=== PATIENT | male | born 1945 | race Caucasian/White ===

== ENCOUNTER 2019-10-22 11:59 | Outpatient (CLI) | payer MEDICARE, OTHER, SELFPAY ==
--- NOTE | 2019-10-22 | XR_ITS ---
WS: [id number] ELBOW RIGHT TECHNIQUE: 3 views of the right elbow CLINICAL INFORMATION: ELBOW INURY RIGHT COMPARISON: None. FINDINGS: No significant joint effusion. Distal humerus is normal in appearance. Normal radial head. Normal ole cranon. No evidence of acute fracture dislocation. Olecranon spurring XR/XR elbow RT min 3V* [id number] IMPRESSION: No acute fractures
== END 2019-10-22 12:00 | disposition home or self-care (01) ==
LOC: RADOUTREAD 15:31
PROVIDERS: Family Provider Family Medicine; PCP Family Medicine; Visit Provider Nurse Practitioner Family
DX: S59.901A Unspecified injury of right elbow, initial encounter (principal); X58.XXXA Exposure to other specified factors, initial encounter; M25.521 Pain in right elbow
CPT/HCPCS: 73080

== ENCOUNTER 2020-05-01 14:09 | Outpatient (CLI) | payer MEDICARE, OTHER, SELFPAY ==
--- NOTE | 2020-05-01 14:15 | USCV_ITS ---
ImerSaul jesus Age: 75 Gender: M : 1945 Exam Date: 05/01/2020 14:17 Ordering Phys: Maged Ballard MD ([email or web address]) Technologist: Fernando Cox Exam Location[place] [facility] [place] Indication: CAROTID ARTERY DISEASE SURVEILLANCE PREVIOUS STROKE Risk Factors: Previous Vascular Surgery: Right Brachial BP: / Left Brachial BP: / Right Left Velocity (cm/s) Spectral Plaque Velocity (cm/s) Spectral Plaque Syst/Diast Broadening Syst/Diast Broadening 60.40/ 11.80 Prox CCA 99.30 / 18.30 75.70/ 19.40 Mid CCA 81.80 / 16.80 63.90/ 8.30 Distal CCA 67.20 / 9.90 52.80/ 16.70 Prox ICA 61.80 / 17.70 65.30/ 17.40 Mid ICA 50.00 / 19.00 64.60/ 18.80 Distal ICA 50.60 / 13.80 88.90 ECA 79.50 0.86 ICA/CCA 0.61 Antegrade Vertebral Antegrade 32.00/ 7.60 cm/s 21.90/ 9.10 cm/s Tri Subclavian Bi 68.00 88.60 CONCLUSIONS Right ICA stenosis <50%. Moderate atheromatous plaque right carotid bulb/ICA. Left ICA stenosis <50%. Moderate atheromatous plaque left carotid bulb/ICA. . Normal antegrade Doppler flow noted in the right vertebral artery. Normal antegrade Doppler flow noted in the left vertebral artery. Hussein Callejas MD (Electronically Signed) Final Date: 01 May 2020 17:01 S
== END 2020-05-01 14:10 | disposition home or self-care (01) ==
LOC: RAD 14:15
PROVIDERS: PCP Family Medicine; Visit Provider Internal Medicine Cardiovascular Disease
DX: I65.23 Occlusion and stenosis of bilateral carotid arteries (principal)
CPT/HCPCS: 93880

== ENCOUNTER 2020-11-12 13:47 | Emergency (ER) | payer OTHER, MEDICARE, SELFPAY ==
[2020-11-12 14:10] VITALS: BP 139/94; PULSE 80; RESP 14; TEMP 36.5; O2SAT 95; BMI 22.1
--- NOTE | 2020-11-12 14:18 | XRR_ITS ---
PROCEDURE INFORMATION: Exam: XR Lumbosacral Spine, 2 or 3 Views Exam date and time: 11/12/2020 2:54 PM Age: 75 years old Clinical indication: Low back pain TECHNIQUE: Imaging protocol: XR of the lumbosacral spine, 2 or 3 views. COMPARISON: CR Hip 2-3v LEFT wwo Pelv* [id number] 08/26/2015 2:32 PM FINDINGS: Bones/joints: Normal. No acute fracture. Normal alignment. Soft tissues: Unremarkable. Vasculature: There is a metallic aortic vascular stent present extending into the proximal iliac arteries. XR/XR lumbar spine 2-3V* [id number] IMPRESSION: 1. No acute lumbar spine bony abnormality. 2. Vascular stent is in the aorta and proximal iliac arteries
--- NOTE | 2020-11-12 14:18 | XRR_ITS ---
PROCEDURE INFORMATION: Exam: XR Right Hip with Pelvis when Performed Exam date and time: 11/12/2020 2:54 PM Age: 75 years old Clinical indication: Hip pain; Right hip TECHNIQUE: Imaging protocol: XR Right hip with pelvis when performed. Views: 1 view. COMPARISON: CR Pelvis AP 1 or 2 views* [id number] 08/26/2015 2:32 PM FINDINGS: Bones/joints: Unremarkable. No acute fracture. Soft tissues: Unremarkable. XR/XR hip RT 2-3V wo/w pel* [id number] IMPRESSION: No acute findings.
--- NOTE | 2020-11-12 16:11 | ED_ITS ---
HPI - Extremity Problem General: Chief complaint: Extremity Problem,Nontraumatic Stated complaint: BACK PAIN, RECENTLY SEEN AT [facility]WALK[facility] Time Seen by Provider: 11/12/20 14:39 Source: patient and family Limitations: other (Patient presents to the emergency department with 3 weeks of nontraumatic right hip pain. Pain starts in the right buttock cancer radiates around to the right lateral hip. No pain with walking or palpation. No pain with movement. Pain just seems to come randomly. Denies having any midline back ) History of Present Illness: Associated symptoms: Deny chest pain or fever(s) Review of Systems General: Reports: 10 or more systems reviewed and unremarkable except in HPI and below Const: Denies: fever(s) Eyes: Denies: change in vision ENMT: Denies: throat pain Card: Denies: chest pain Resp: Denies: dyspnea GI: Denies: abdominal pain : Denies: flank pain Musc: Reports: joint pain; Denies: neck pain, joint swelling or joint redness [facility] ED PFSH: Medical History Atrial fibrillation CAD (coronary artery disease) Carotid arterial disease HTN (hypertension) Hyperlipemia Left middle cerebral artery stroke Mitral regurgitation Pacemaker SSS (sick sinus syndrome) Warfarin anticoagulation Social History Smoking and tobacco status: former smoker Household members: spouse Marital status: service: Yes branch: [employer] Physical Exam Const: COMMON NORMALS: no acute distress, average body habitus, patient oriented x3, no limitations, healthy appearing, alert and well nourished HENMT: COMMON NORMALS: normocephalic, atraumatic, hearing grossly normal bilaterally, external ears normal, EAC's normal, TM's normal bilaterally, Normal external nose present, Normal nasal mucous membranes and turbinates present, moist oral mucous membranes, oropharynx normal, dentition normal and gingiva normal HEAD & SCALP: normocephalic and atraumatic NOSE: Normal external nose present and Normal nasal mucous membranes and turbinates present EXTERNAL EAR: Yes external ears normal EXTERNAL AUDITORY CANAL: EAC's normal TYMPANIC MEMBRANE: TM's normal bilaterally Neck/C-Spine: COMMON NORMALS: no JVD Chest: COMMONS NORMALS: normal inspection of the chest, normal palpation of entire chest wall, normal inspection of the breasts and normal palpation of the breasts Breast/axilla inspection: Yes normal inspection of the breasts BREAST/AXILLA PALPATION: Yes normal palpation of the breasts Resp: COMMON NORMALS: normal respiratory effort, No retractions, No use of accessory muscles, clear to auscultation bilaterally and percussion normal AUSCULTATION: clear to auscultation bilaterally PERCUSSION: percussion normal Cardio: COMMON NORMALS: no JVD, regular rate, regular rhythm, S1 normal heart sound present, S2 normal heart sound present, No gallops present (Cardio), No clicks present (Cardio), No murmurs present (Cardio), No rub (Cardio) and Peripheral pulses 2+ throughout RATE: regular rate RHYTHM: regular rhythm HEART SOUNDS: S1 normal heart sound present and S2 normal heart sound present PERIPHERAL PULSES: Peripheral pulses 2+ throughout GI: COMMON NORMALS: Normal to inspection, nondistended, normoactive bowel sounds present, Soft to palpation, non-tender, No hepatosplenomegaly present, no masses and no bruits PALPATION: Yes Soft to palpation and Yes No hepatosplenomegaly present : COMMON NORMALS: Yes no CVA tenderness BLADDER/KIDNEY EXAM: Yes no CVA tenderness Back/Pelvis: COMMON NORMALS: no CVA tenderness, thoracic and lumbar spine normal to inspection, no thoracic nor lumbar tenderness, thoraco-lumbar ROM normal and straight leg raise negative bilaterally Extremity: COMMON NORMALS: normal to inspection, full ROM, capillary refill normal, no joint enlargement, no clubbing, cyanosis or edema, no calf tenderness and no pedal edema Neuro: COMMON NORMALS: patient oriented x3 SENSORIUM/ORIENTATION: Yes alert Course Vital Signs: Vital signs: Vital Signs Temperature 97.7 F 11/12/20 14:10 Pulse Rate 86 11/12/20 16:07 Respiratory Rate 18 11/12/20 16:07 Blood Pressure 120/91 11/12/20 16:07 Pulse Oximetry 94 11/12/20 16:07 MDM - Extremity (Nontraumatic) MDM Narrative: Medical decision making narrative: Patient presents with nontraumatic right hip pain x3 weeks. He does not have any pain at present. He states that it seemed to be worse at night. Nothing really seems to make it worse. He actually states that he has an MRI scheduled for tomorrow. He is wanting something for pain in case it starts hurting again tonight. He does have chronic neuro deficits from a previous stroke on that side. Physical exam is very benign. Unable to elicit any pain. As patient already has an outpatient MRI scheduled for tomorrow per his report, I see no reason to do any further emergent imaging at this time. Patient given [place] for pain. Discharge Plan Discharge Patient Disposition: Home Clinical Impression: Acute hip pain Qualifiers: Laterality: right Qualified Code(s): M25.551 - Pain in right hip Condition: Good Prescriptions: New hydrocodone-acetaminophen 5-325 mg tablet 1 tab PO Q6H Qty: 20 RF: 0 No Action atorvastatin 20 mg tablet 20 mg PO BEDTIME RF: 0 baclofen 10 mg tablet 10 mg PO BID RF: 0 digoxin 125 mcg (0.125 mg) tablet 125 mcg PO DAILY RF: 0 finasteride 5 mg tablet 5 mg PO DAILY RF: 0 gabapentin 300 mg capsule 300 mg PO BID RF: 0 metoprolol tartrate 50 mg tablet 50 mg PO BID RF: 0 tamsulosin 0.4 mg capsule 0.4 mg PO BEDTIME RF: 0 trazodone 50 mg tablet 50 mg PO BEDTIME RF: 0 warfarin 5 mg tablet See Rx Instructions .ROUTE .COMPLEX RF: 0 warfarin 2.5 mg tablet See Rx Instructions .ROUTE .COMPLEX RF: 0 Singulair 10 mg Tablet 10 mg PO DAILY RF: 0 Tylenol Extra Strength 500 mg Tablet 500 mg PO PRN RF: 0 Discharge Orders: Discharge ED (Routine); Ordered 11/12/20 Ordered By: Dimitri Maddox Referrals: Arlene David MD [Primary Care Provider] - Coding Level of Care Code ED Night Custodian for Goran Howard
[2020-11-12] MEDS: HYDROcodone-acetaminophen 5-325 mg Tablet 1 TAB PO (16:14)
[2020-11-12 16:19] VITALS: PULSE 77; RESP 16; O2SAT 95
== END 2020-11-12 16:19 | disposition home or self-care (01) ==
PROVIDERS: Emergency Provider Emergency Medicine; PCP Family Medicine
DX: M25.551 Pain in right hip (principal); Z79.01 Long term (current) use of anticoagulants; I48.91 Unspecified atrial fibrillation; I25.10 Atherosclerotic heart disease of native coronary artery without angina pectoris; I10 Essential (primary) hypertension; E78.5 Hyperlipidemia, unspecified; Z86.73 Personal history of transient ischemic attack (TIA), and cerebral infarction without residual deficits; Z95.0 Presence of cardiac pacemaker; Z87.891 Personal history of nicotine dependence
CPT/HCPCS: 12345; 72100; 73502; 99281; 99283

== ENCOUNTER → 2022-03-11 12:46 | Outpatient (BNVA) | payer MEDICARE, OTHER, SELFPAY | PROVIDERS: PCP Family Medicine; Visit Provider Internal Medicine | DX: I25.10 Atherosclerotic heart disease of native coronary artery without angina pectoris (principal); I10 Essential (primary) hypertension; E78.5 Hyperlipidemia, unspecified; I34.0 Nonrheumatic mitral (valve) insufficiency; I48.91 Unspecified atrial fibrillation; I49.5 Sick sinus syndrome; Z87.891 Personal history of nicotine dependence | CPT/HCPCS: 99214 ==

== ENCOUNTER → 2022-03-28 13:52 | Outpatient (BNVA) | payer MEDICARE, OTHER, SELFPAY | PROVIDERS: PCP Family Medicine; Visit Provider Internal Medicine | DX: Z45.010 Encounter for checking and testing of cardiac pacemaker pulse generator [battery] (principal) ==

== ENCOUNTER 2022-04-01 21:30 | Emergency (ER) | payer MEDICARE, OTHER, SELFPAY ==
[2022-04-01 21:42] VITALS: BP 156/89; PULSE 102; RESP 18; TEMP 37.6; O2SAT 93; BMI 22.1
--- NOTE | 2022-04-01 22:02 | XRR_ITS ---
PROCEDURE INFORMATION: Exam: XR Chest Exam date and time: 04/01/2022 11:32 PM Age: 76 years old Clinical indication: Other: Dizziness; Prior surgery; Surgery date: 1-6 months; Surgery type: Pacemaker insertion; Additional info: Fever TECHNIQUE: Imaging protocol: XR of the chest. Views: 1 view. COMPARISON: [facility] Chest 2 views 05/01/2018 11:16 AM FINDINGS: Tubes, catheters and devices: Left-sided cardiac pacemaker again noted, not significantly changed. Lungs: No CHF/pulmonary edema. Visible lungs appear essentially clear. Pleural spaces: No visible pneumothorax. No definite pleural fluid. Heart/Mediastinum: Heart size is upper range of normal. Bones/joints: No significant acute finding. XR/XR chest 1V portable [id number] IMPRESSION: 1. No definite pneumonia or CHF. 2. Left-sided cardiac pacemaker, unchanged. 3. Other findings discussed above.
[2022-04-01 23:31] LABS: Add Urine Culture? Yes; Add Urine Microscopic? YES; Bacteria Urine TRACE /hpf; Bilirubin Urine Neg (Negative); Blood Urine 2+ (Negative); Glucose Urine UA Norm (Normal); Ketones Urine Negative (Negative); Leukocyte Esterase Urine Negative (Negative); Nitrate Urine Negative (Negative); Protein Urine Neg (Negative); RBC Urine 15-25 /hpf (0-2); Squamous Epithelial Cell Urine 0-4 /hpf (0-5); Urine Appearance Clear (CLEAR); Urine Color Yellow (Yellow); Urobilinogen Urine 1 mg/dL (Negative); WBC Urine 0-4 /hpf (0-5); pH Urine 6 (5-7)
--- NOTE | 2022-04-01 23:56 | CTR_ITS ---
PROCEDURE INFORMATION: Exam: CT Head Without Contrast Exam date and time: 04/02/2022 12:28 AM Age: 76 years old Clinical indication: Dizziness and walking, difficulty; Patient HX: HX of stroke six yrs ago. RT sided paralysis; Additional info: Confusion TECHNIQUE: Imaging protocol: Computed tomography of the head without contrast. Radiation optimization: All CT scans at this facility use at least one of these dose optimization techniques: automated exposure control; mA and/or kV adjustment per patient size (includes targeted exams where dose is matched to clinical indication); or iterative reconstruction. COMPARISON: CT head wo con* [id number] 04/28/2018 3:34 PM RADIATION DOSE METRICS: Total DLP (mGy-cm): 829.46 FINDINGS: Brain: No acute intracranial hemorrhage or mass effect. There is decreased attenuation in the periventricular white matter, likely from microvascular disease. There is an old lacunar infarct in the left thalamus. Additional old infarcts involve the left posterior temporal/occipital regions, and superior left cerebellum. No definite acute infarct by CT. MRI could be more sensitive/specific for detection, as clinically directed. Cerebral ventricles: Ventricle size is normal for age. Paranasal sinuses: Included paranasal sinuses are essentially clear. Mastoid air cells: No significant acute finding. Parotid and submandibular glands: On the lowest few images, there appears to be a 3 x 2 cm mass involving the region of or just anterior to the right parotid gland, only partially included/evaluated on this exam. This appears new/larger than on the comparison exam. The etiology is not specific, however neoplasm, (either benign or malignant), is likely. I do not think this simply represents an enlarged lymph node. Clinical attention to this area is recommended. MRI would probably be most specific for any further imaging evaluation, as clinically directed. Bones/joints: No definite acute skull fracture. Soft tissues: No significant acute finding. Vasculature: Vascular calcifications in the internal carotid and vertebral basilar systems. CT/CT head wo con* [id number] IMPRESSION: 1. No acute intracranial hemorrhage or mass effect. 2. Changes of microvascular disease, and old infarcts, details above. 3. No definite acute infarct by CT, see above. 4. 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 Please see above discussion. 5. Other findings discussed above.
--- NOTE | 2022-04-01 23:56 | W.ED.GENADLT ---
HPI - General Adult General: Chief complaint: General Medical Stated complaint: Fever/Pacemaker Time Seen by Provider: 04/01/22 23:10 Source: patient Mode of arrival: ambulatory Limitations: no limitations History of Present Illness: 76-year-old male who states he been having intermittent fevers over the last 2 days and not feeling well. He states he had some generalized weakness and a temperature up to 101. States he has had a high blood pressure as well as had a history of high blood pressure. Family states that he has had fevers has had some confusion patient currently is able answer all my questions and he feels improved currently than he did he states earlier today. He has had no cough no pain anywhere he denies any vomiting or diarrhea denies any worsening proving factors. Associated symptoms: Reports confusion; Deny chest pain, dyspnea, nausea, rash or vomiting Review of Systems Const: Reports: fever(s) Eyes: Denies: blurry vision or eye discomfort ENMT: Denies: throat pain or dental pain Card: Denies: chest pain Resp: Denies: dyspnea GI: Denies: abdominal pain, nausea, vomiting or diarrhea : Denies: dysuria Musc: Denies: neck pain or back pain Skin/Breast: Denies: rash Neuro: Reports: numbness in extremities and confusion Psych: Denies: depression Rip/Lymph: Denies: easy bruising All/Imm: Denies: urticaria PFSH ED PFSH: Medical History Atrial fibrillation CAD (coronary artery disease) Carotid arterial disease HTN (hypertension) Hyperlipemia Left middle cerebral artery stroke Mitral regurgitation Pacemaker SSS (sick sinus syndrome) Warfarin anticoagulation Social History Smoking and tobacco status: former smoker Alcohol intake: never Household members: spouse Marital status: service: Yes branch: [employer] Physical Exam Const: COMMON NORMALS: patient oriented x3 HENMT: COMMON NORMALS: normocephalic and atraumatic HEAD & SCALP: normocephalic and atraumatic Eye: COMMON NORMALS: Equal, round and reactive pupils present and EOMs intact bilaterally PUPIL: Yes Equal, round and reactive pupils present Neck/C-Spine: COMMON NORMALS: full ROM and supple Chest: COMMONS NORMALS: normal inspection of the chest and normal palpation of entire chest wall Resp: COMMON NORMALS: normal respiratory effort, No retractions, No use of accessory muscles and clear to auscultation bilaterally AUSCULTATION: clear to auscultation bilaterally Cardio: COMMON NORMALS: regular rate, regular rhythm and No murmurs present (Cardio) RATE: regular rate RHYTHM: regular rhythm GI: COMMON NORMALS: Normal to inspection, nondistended, normoactive bowel sounds present, Soft to palpation, non-tender and no masses PALPATION: Yes Soft to palpation Extremity: COMMON NORMALS: normal to inspection and full ROM Neuro: COMMON NORMALS: patient oriented x3, moves all extremities and no focal motor deficits Psych: COMMON NORMALS: mental status grossly normal, Normal thought process present and cooperative THOUGHT PROCESS: Normal thought process present Skin: COMMON NORMALS: no rashes or lesions noted and no wounds GENERAL SKIN EXAM: no rashes or lesions noted Course Vital Signs: Vital signs: Vital Signs Temperature 99.7 F H 04/01/22 21:42 Pulse Rate 102 H 04/01/22 21:42 Respiratory Rate 18 04/01/22 21:42 Blood Pressure 156/89 04/01/22 21:42 Pulse Oximetry 93 04/01/22 21:42 [facility] - General Adult Medical Decision Making Patient presents here with a fever. He had supposedly had some confusion at home but here he has been alert and orient x4 able answer my questions appropriately he has no complaints states he feels much improved his fever has improved here. Patient's blood count here is normal x-ray urinalysis are normal head CT was normal as well he has no neck stiffness no signs of meningitis his COVID was negative we will place him on Keflex follow blood cultures and have him follow-up with his PCP is return if he has any worsening symptoms family and him agree and understand plan. Lab Data : 04/01/22 23:56 04/01/22 23:56 Radiology Impressions Chest X-Ray 04/01/22 22:02 IMPRESSION: 1. No definite pneumonia or CHF. 2. Left-sided cardiac pacemaker, unchanged. 3. Other findings discussed above. Head CT 04/01/22 23:56 IMPRESSION: 1. No acute intracranial hemorrhage or mass effect. 2. Changes of microvascular disease, and old infarcts, details above. 3. No definite acute infarct by CT, see above. 4. 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 Please see above discussion. 5. Other findings discussed above. Laboratory Results WBC 4.3 10^3/uL (4.0-10.0) 04/01/22 23:56 RBC 4.70 10^6/uL (4.1-5.3) 04/01/22 23:56 Hgb 15.5 g/dL (11.7-16.6) 04/01/22 23:56 Hct 44.4 % (42.0-52.0) 04/01/22 23:56 MCV 94.5 fl (80-94) H 04/01/22 23:56 MCH 33.0 pg (28.0-34.0) 04/01/22 23:56 MCHC 34.9 g/dL (30.0-36.0) 04/01/22 23:56 RDW 12.4 % (12.1-15.1) 04/01/22 23:56 Plt Count 80 10^3/cmm (130-400) L 04/01/22 23:56 MPV 11.4 fL (7.4-10.4) H 04/01/22 23:56 Neut % (Auto) 67.3 % 04/01/22 23:56 Lymph % (Auto) 17.0 % 04/01/22 23:56 [place] % (Auto) 14.5 % 04/01/22 23:56 Eos % (Auto) 0.2 % 04/01/22 23:56 Baso % (Auto) 0.5 % 04/01/22 23:56 Neut # (Auto) 2.89 10^3/uL (1.8-7.7) 04/01/22 23:56 Lymph # (Auto) 0.7 10^3/uL (0.8-4.8) L 04/01/22 23:56 [place] # (Auto) 0.6 10^3/uL (0.2-0.9) 04/01/22 23:56 Eos # (Auto) 0.0 10^3/uL (0.0-0.8) 04/01/22 23:56 Baso # (Auto) 0.0 10^3/uL (0.0-0.1) 04/01/22 23:56 Nucleated RBC % (auto) 0 % 04/01/22 23:56 Nucleated RBCs # 0.0 /100WBC 04/01/22 23:56 PT 20.10 SECONDS (12.1-14.9) H 04/02/22 00:06 INR 1.68 (0.8-1.2) H 04/02/22 00:06 Sodium 135 mmol/L (136-145) L 04/01/22 23:56 Potassium 3.8 mmol/L (3.5-5.1) 04/01/22 23:56 Chloride 99 mmol/L (98-107) 04/01/22 23:56 Carbon Dioxide 26 mmol/L (22-29) 04/01/22 23:56 Anion Gap 13.8 (5-19) 04/01/22 23:56 BUN 14 mg/dL (8-23) 04/01/22 23:56 Creatinine 0.9 mg/dL (0.7-1.2) 04/01/22 23:56 GFR Calculation Not Reportable 04/01/22 23:56 Glucose 96 mg/dL (65-115) 04/01/22 23:56 Calculated Osmolality 280 mOsm/kg (285-295) L 04/01/22 23:56 Calcium 8.6 mg/dL (8.5-10.5) 04/01/22 23:56 Total Bilirubin 1.2 mg/dL (0.15-1.2) 04/01/22 23:56 AST 53 U/L (0-40) H 04/01/22 23:56 ALT 40 U/L (0-41) 04/01/22 23:56 Alkaline Phosphatase 88 IU/L (40-130) 04/01/22 23:56 Total Protein 7.3 g/dL (6.6-8.7) 04/01/22 23:56 Albumin 3.7 g/dL (3.5-5.2) 04/01/22 23:56 Globulin 3.6 g/dL (1.3-4.6) 04/01/22 23:56 Urine Color Yellow (Yellow) 04/01/22 21:45 Urine Appearance Clear (CLEAR) 04/01/22 21:45 Urine pH 6 (5-7) 04/01/22 21:45 Ur Specific [place] 1.020 (1.005-1.030) 04/01/22 21:45 Urine Protein Neg (Negative) 04/01/22 21:45 Urine Glucose (UA) Norm (Normal) 04/01/22 21:45 Urine Ketones Negative (Negative) 04/01/22 21:45 Urine Blood 2+ (Negative) H 04/01/22 21:45 Urine Nitrate Negative (Negative) 04/01/22 21:45 Urine Bilirubin Neg (Negative) 04/01/22 21:45 Urine Urobilinogen 1 mg/dL (Negative) H 04/01/22 21:45 Ur Leukocyte Esterase Negative (Negative) 04/01/22 21:45 Urine RBC 15-25 /hpf (0-2) H 04/01/22 21:45 Urine WBC 0-4 /hpf (0-5) H 04/01/22 21:45 Ur Squamous Epith Cells 0-4 /hpf (0-5) H 04/01/22 21:45 Amorphous Sediment Not Reportable 04/01/22 21:45 Urine Bacteria Trace /hpf (NONE) 04/01/22 21:45 SARS-CoV-2 Ag (Rapid) Negative (Negative) 04/02/22 00:05 Discharge Plan Discharge Patient Disposition: Home Clinical Impression: Fever Qualifiers: Fever type: unspecified Qualified Code(s): R50.9 - Fever, unspecified Condition: Stable Prescriptions: New cephalexin 500 mg capsule 500 mg PO TID 7 Days Qty: 21 0RF No Action atorvastatin 20 mg tablet 20 mg PO BEDTIME 0RF baclofen 10 mg tablet 10 mg PO BID 0RF digoxin 125 mcg (0.125 mg) tablet 125 mcg PO DAILY 0RF finasteride 5 mg tablet 5 mg PO DAILY 0RF tamsulosin 0.4 mg capsule 0.4 mg PO BEDTIME 0RF trazodone 50 mg tablet 50 mg PO BEDTIME 0RF warfarin 5 mg tablet See Rx Instructions .ROUTE .COMPLEX 0RF Rx Instructions: 5 mg orally at bedtime on mon,tu,wed,,fri,sat gabapentin 300 mg capsule 300 mg PO DAILY 0RF metoprolol tartrate 100 mg tablet 100 mg PO BID Qty: 180 3RF multivitamin [Daily Multi-Vitamin] Tablet 1 tab PO DAILY 0RF warfarin 2.5 mg tablet See Rx Instructions .ROUTE .COMPLEX 0RF Rx Instructions: 2.5mg po at bedtime once a week on friday Singulair 10 mg Tablet 10 mg PO DAILY 0RF Tylenol Extra Strength 500 mg Tablet 500 mg PO PRN 0RF Discharge Orders: Discharge ED (Routine); Ordered 04/02/22 Ordered By: Brigida Chauhan Referrals: Arlene David MD [Primary Care Provider] - 1-3 days Discharge Diet: Advance as tolerated Discharge Activity: Resume usual activity Patient Instructions: Fever in Adults (ED) Coding Level of Care Code ED Programming Manager for Chg Fwd Exam Comprehensive
[2022-04-02] MEDS: acetaminophen 325 mg Tablet 650 MG PO (00:11)
[2022-04-02] MEDS: hyDRALAzine 20 mg/mL INJ 1 mL 10 MG IVP (00:11)
[2022-04-02 00:14] LABS: Basophils % 0.5 %; Eosinophils % 0.2 %; Hematocrit 44.4 % (42.0-52.0); Hemoglobin 15.5 g/dL (11.7-16.6); Lymphocytes # 0.7 10^3/uL (0.8-4.8); Mean Corpuscular HGB Conc 34.9 g/dL (30.0-36.0); Mean Corpuscular Volume 94.5 fl (80-94); Mean Platelet Volume 11.4 fL (7.4-10.4); Monocytes # 0.6 10^3/uL (0.2-0.9); Monocytes % 14.5 %; Neutrophils # 2.89 10^3/uL (1.8-7.7); Neutrophils % 67.3 %; Nucleated Red Blood Cells % 0 %; Platelet Count 80 10^3/cmm (130-400); Red Cell Distribution Width 12.4 % (12.1-15.1); White Blood Count 4.3 10^3/uL (4.0-10.0)
[2022-04-02 00:21] LABS: Alanine Aminotransferase 40 U/L (0-41); Albumin Level 3.7 g/dL (3.5-5.2); Alkaline Phosphatase 88 IU/L (40-130); Anion Gap 13.8 (5-19); Aspartate Amino Transferase 53 U/L (0-40); Blood Urea Nitrogen 14 mg/dL (8-23); Calcium 8.6 mg/dL (8.5-10.5); Carbon Dioxide 26 mmol/L (22-29); Chloride 99 mmol/L (98-107); Creatinine Clr Calc Pharmacy 70.9251; Globulin 3.6 g/dL (1.3-4.6); Glucose 96 mg/dL (65-115); Osmolality Calculated 280 mOsm/kg (285-295); Potassium 3.8 mmol/L (3.5-5.1); Sodium 135 mmol/L (136-145); Total Bilirubin 1.2 mg/dL (0.15-1.2); Total Protein 7.3 g/dL (6.6-8.7)
[2022-04-02 00:32] LABS: INR 1.68 (0.8-1.2)
[2022-04-02 00:54] LABS: SARS Covid-2 Antigen Negative (Negative)
[2022-04-02] MEDS: cephALEXin 500 mg Capsule PO (01:48)
[2022-04-03 11:52] LABS: Lyme AB Screen <0.90 index
[2022-04-06 16:18] LABS: RMSF IGG DETECTED; RMSF IGM NOT DETECTED
[2022-04-06 22:09] LABS: E. Chaffeensis AB IGG <1:64; E. Chaffeensis AB IGM <1:20
== END 2022-04-02 01:50 | disposition home or self-care (01) ==
PROVIDERS: Emergency Provider Emergency Medicine; PCP Family Medicine
DX: R50.9 Fever, unspecified (principal); I25.10 Atherosclerotic heart disease of native coronary artery without angina pectoris; I48.91 Unspecified atrial fibrillation; I10 Essential (primary) hypertension; E78.5 Hyperlipidemia, unspecified; Z79.01 Long term (current) use of anticoagulants; Z95.0 Presence of cardiac pacemaker
CPT/HCPCS: 70450; 71045; 80053; 81001; 85025; 85610; 86618; 86666; 86757; 87040; 87086; 87426; 96374; 99284; J0360

== ENCOUNTER 2022-05-21 15:29 | Outpatient (CLI) | payer MEDICARE, OTHER, SELFPAY ==
--- NOTE | 2022-05-21 15:36 | CT_ITS ---
WS: [id number] CT NECK TECHNIQUE: Contrast-enhanced CT of the neck with coronal and sagittal reformatted images. CLINICAL INFORMATION: BENIGN NEOPLASM OF PAROTID GLAND, LOCALIZED SWELLING, MASS COMPARISON: CT 10,018 DLP: 244.[address] scans at [facility] use at least one of these dose optimization techniques: automated e xposure control; mA and/or kV adjustment per patient size (includes targeted exams where dose is matc hed to clinical indication); or iterative reconstruction. FINDINGS: Images of the tongue base are degraded due to dental artifact. Normal submandibular glands. Enhancing RIGHT parotid mass in the anterior superficial parotid gland appears progressed compared to previous . This has a more heterogeneous appearance today measuring approximately 3.1 x 2.1 x 3.2 cm AP by tra nsverse by craniocaudal. This appears to infiltrate into the adjacent masseter with loss of the nani l flat plate and muscle thickening. Recommend ENT consultation for consideration of resection. No other remarkable changes compared to previous. Partially visualized infarct in the inferior LEFT t emporal lobe and LEFT cerebellum with encephalomalacia. Mastoid air cells well aerated. Partially vis ualized paranasal sinuses are well aerated. No evidence of supraglottic or glottic mass. Normal mondragon cula and piriform sinuses. Subglottic airway is patent. Advanced emphysematous changes in the lung apices. Moderate carotid bulb calcification. Mild spondyli tic changes cervical spine. CT/CT neck w con* [id number] IMPRESSION: 1. Progressed enhancing RIGHT parotid lesion deep to the palpable marker. Toda y this has a more irregular heterogeneous appearance and measures approximately 3.1 x 2.1 x 3.2 cm with infiltration into the adjacent masseter anteriorly wit h loss of the normal fat plane. Recommend ENT consultation for resection. Findi ngs compatible with neoplasm. Staging could be performed with PET/CT. 2. No evidence of supraglottic or glottic mass. 3. No other significant changes compared to previous.
[2022-05-21] MEDS: iohexol 350 mg/mL 100 mL Btl IV (15:53)
== END 2022-05-21 15:30 | disposition home or self-care (01) ==
PROVIDERS: PCP Family Medicine; Visit Provider Specialist
DX: D11.0 Benign neoplasm of parotid gland (principal); R22.1 Localized swelling, mass and lump, neck
CPT/HCPCS: 70491

== ENCOUNTER → 2022-07-24 11:04 | Outpatient (BNVA) | payer MEDICARE, OTHER, SELFPAY | PROVIDERS: PCP Family Medicine; Visit Provider Internal Medicine | DX: Z45.010 Encounter for checking and testing of cardiac pacemaker pulse generator [battery] (principal) | CPT/HCPCS: 93280 ==

== ENCOUNTER → 2022-09-18 13:57 | Outpatient (BNVA) | payer MEDICARE, OTHER, SELFPAY | PROVIDERS: PCP Family Medicine; Visit Provider Internal Medicine | DX: I10 Essential (primary) hypertension (principal); E78.5 Hyperlipidemia, unspecified; I34.0 Nonrheumatic mitral (valve) insufficiency; I48.91 Unspecified atrial fibrillation; Z79.01 Long term (current) use of anticoagulants; I49.5 Sick sinus syndrome; I25.10 Atherosclerotic heart disease of native coronary artery without angina pectoris; Z87.891 Personal history of nicotine dependence | CPT/HCPCS: 99213 ==

== ENCOUNTER 2022-11-12 09:58 | Oncology outpatient (recurring) (ONCR) | payer MEDICARE, OTHER, SELFPAY ==
--- NOTE | 2022-11-12 10:31 | N.ONRAD NP_ITS ---
Radiation Oncology Consultation Patient Name: Saul Willams Date of : 1945 Date of Service: 11/12/2022 Attending Physician: Dilip Desouza M.D. Saul Willams was seen in consultation this afternoon for evaluation regarding adjuvant head and neck radiotherapy in the management of a recently diagnosed parotid cancer. He was assessed by Guy Harper M.D. for a right parotid mass. A CT of the neck ordered on May 21, 2022 described a 3.1 cm x 2.1 cm x 3.2 cm enhancing mass M.D. in the right superficial parotid gland. He was referred to [facility] in [place], [place]. A fine-needle aspiration obtained on July 22, 2022 reported rare atypical cells. A repeat FNA completed on August 26, 2022 diagnosed a salivary gland carcinoma favoring mucoepidermoid carcinoma. A PET scan (requested from the outside hospital and independently reviewed in synapse) obtained on September 26, 2022 identified an infiltrative mass within the right parotid gland (SUV 20.3). There was no evidence for local or distant metastatic disease. A right total parotidectomy with facial nerve preservation and selective neck dissection with a right sternocleidomastoid rotational flap was performed by Celestino Bajwa M.D. on October 01, 2022. 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 Malignancy was present within 1 mm of the inked margin. A total of 7 benign lymph nodes were harvested from cervical lymph node levels I, II A, and III. The patient was evaluated for consideration for post-operative radiotherapy. I discussed with Mr. Willams [employer] [place] [employer]aging for salivary gland cancer and specifically the patient's pathological stage II (T2N0) corresponding to his disease. I reviewed the National Comprehensive Cancer Network Guidelines recommending adjuvant radiotherapy following complete resection for adenoid cystic carcinoma or intermediate/high-grade tumors. I would endorse a 6-week course of radiation therapy. Prior to beginning treatment, a planning CT scan with contrast will be acquired to delineate the clinical target volumes. I reviewed the potential toxicities of head and neck radiotherapy. The patient has verbalized understanding and would like to proceed as advocated. Signed by: Dr. Dilip Desouza 11/12/2022 10:29:32 AM
[2022-11-12 11:22] LABS: Basophils % 0.4 %; Eosinophils # 0.2 10^3/uL (0.0-0.8); Eosinophils % 2.4 %; Hematocrit 47.7 % (42.0-52.0); Hemoglobin 15.8 g/dL (11.7-16.6); Lymphocytes # 2.9 10^3/uL (0.8-4.8); Lymphocytes % 34.8 %; Mean Corpuscular HGB Conc 33.1 g/dL (30.0-36.0); Mean Corpuscular Hemoglobin 32.3 pg (28.0-34.0); Mean Corpuscular Volume 97.5 fl (80-94); Mean Platelet Volume 10.9 fL (7.4-10.4); Monocytes # 0.9 10^3/uL (0.2-0.9); Monocytes % 10.8 %; Neutrophils # 4.31 10^3/uL (1.8-7.7); Neutrophils % 51.4 %; Nucleated Red Blood Cells % 0 %; Platelet Count 141 10^3/cmm (130-400); Red Blood Count 4.89 10^6/uL (4.1-5.3); Red Cell Distribution Width 12.6 % (12.1-15.1); White Blood Count 8.4 10^3/uL (4.0-10.0)
[2022-11-12 11:47] LABS: Alanine Aminotransferase 26 U/L (0-41); Alkaline Phosphatase 89 U/L (40-130); Anion Gap 10.5 (5-19); Aspartate Amino Transferase 29 U/L (0-40); Blood Urea Nitrogen 13 mg/dL (8-23); Calcium 9.9 mg/dL (8.5-10.5); Carbon Dioxide 32 mmol/L (22-29); Chloride 104 mmol/L (98-107); Globulin 3.3 g/dL (1.3-4.6); Glucose 86 mg/dL (65-115); Osmolality Calculated 293 mOsm/kg (285-295); Potassium 4.5 mmol/L (3.5-5.1); Sodium 142 mmol/L (136-145); Total Bilirubin 1.2 mg/dL (0.15-1.2); Total Protein 7.3 g/dL (6.6-8.7)
== END 2022-11-19 23:59 | disposition home or self-care (01) ==
PROVIDERS: PCP Family Medicine; Visit Provider Radiology Radiation Oncology
DX: C07 Malignant neoplasm of parotid gland (principal); Z90.09 Acquired absence of other part of head and neck; Z87.891 Personal history of nicotine dependence
CPT/HCPCS: 36415; 80053; 85025; 99205

== ENCOUNTER → 2022-11-25 08:35 | Outpatient (BNVA) | payer MEDICARE, OTHER, SELFPAY | PROVIDERS: PCP Family Medicine; Visit Provider Internal Medicine | DX: Z45.010 Encounter for checking and testing of cardiac pacemaker pulse generator [battery] (principal) | CPT/HCPCS: 93288 ==

== ENCOUNTER 2022-12-17 09:10 | Oncology outpatient (recurring) (ONCR) | payer MEDICARE, OTHER, SELFPAY ==
--- NOTE | 2022-11-20 | CT_ITS ---
Radiation Therapy Planning CT images; total exam DLP: 908.51 mGy-cm MTDD
[2022-11-20] MEDS: iohexol 350 mg/mL 100 mL Btl IV (12:52)
--- NOTE | 2022-11-25 10:24 | ONCRAD TMN_ITS ---
Radiation Oncology Treatment Management Note Patient Name: Saul Willams Date of : 1945 Date of Service: 11/25/2022 Attending Physician: Dilip Desouza M.D. Saul Willams is a 77 year old white male diagnosed with a pathological stage II (T2N0) parotid cancer. He was evaluated by Guy Harper M.D. for a right parotid mass. A CT of the neck ordered on May 21, 2022 described a 3.1 cm x 2.1 cm x 3.2 cm enhancing mass M.D. in the right superficial parotid gland. He was referred to [facility] in [place], [place]. A fine-needle aspiration obtained on July 22, 2022 reported rare atypical cells. A repeat FNA completed on August 26, 2022 diagnosed a salivary gland carcinoma favoring mucoepidermoid carcinoma. A PET scan obtained on September 26, 2022 identified an infiltrative mass within the right parotid gland (SUV 20.3). There was no evidence for local or distant metastatic disease. A right total parotidectomy with facial nerve preservation and selective neck dissection with a right sternocleidomastoid rotational flap was performed by Celestino Bajwa M.D. on October 01, 2022. 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 Malignancy was present within 1 mm of the inked margin. A total of 7 benign lymph nodes were harvested from cervical lymph node levels I, II A, and III. The patient has received 2 Gy of a prescribed 60 Shaw with an intensity modulated radiotherapy plan utilizing a step and shoot treatment technique. Upon review of systems, he denied any complaints related to radiotherapy. On physical examination, the patient weighed 147 lbs. His temperature was 97.3 ???F and the blood pressure was 118/70 mmHg. His pulse was 50 bpm and the respiratory rate was 16. There was no erythema within the treatment alcaraz. Continue post-operative head and neck radiotherapy as prescribed. Signed by: Dr. Dilip Desouza 11/25/2022 10:23:44 AM
--- NOTE | 2022-12-02 09:43 | ONCRAD TMN_ITS ---
Radiation Oncology Treatment Management Note Patient Name: Saul Willams Date of : 1945 Date of Service: 12/02/2022 Attending Physician: Dilip Desouza M.D. Saul Willams is a 77 year old white male diagnosed with a pathological stage II (T2N0) parotid cancer. He was evaluated by Guy Harper M.D. for a right parotid mass. A CT of the neck ordered on May 21, 2022 described a 3.1 cm x 2.1 cm x 3.2 cm enhancing mass M.D. in the right superficial parotid gland. He was referred to [facility] in [place], [place]. A fine-needle aspiration obtained on July 22, 2022 reported rare atypical cells. A repeat FNA completed on August 26, 2022 diagnosed a salivary gland carcinoma favoring mucoepidermoid carcinoma. A PET scan obtained on September 26, 2022 identified an infiltrative mass within the right parotid gland (SUV 20.3). There was no evidence for local or distant metastatic disease. A right total parotidectomy with facial nerve preservation and selective neck dissection with a right sternocleidomastoid rotational flap was performed by Celestino Bajwa M.D. on October 01, 2022. 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 Malignancy was present within 1 mm of the inked margin. A total of 7 benign lymph nodes were harvested from cervical lymph node levels I, II A, and III. The patient has received 12 Gy of a prescribed 60 Shaw with an intensity modulated radiotherapy plan utilizing a step and shoot treatment technique. Upon review of systems, he denied any complaints. On physical examination, the patient weighed 148 lbs. His temperature was 97.3 ???F and the blood pressure was 123/70 mmHg. His pulse was 83 bpm and the respiratory rate was 18. There was no erythema within the treatment alcaraz. Continue post-operative head and neck radiotherapy as planned. Signed by: Dr. Dilip Desouza 12/02/2022 9:42:48 AM
--- NOTE | 2022-12-09 11:07 | ONCRAD TMN_ITS ---
Radiation Oncology Treatment Management Note Patient Name: Saul Willams Date of : 1945 Date of Service: 12/09/2022 Attending Physician: Dilip Desouza M.D. Saul Willams is a 77 year old white male diagnosed with a pathological stage II (T2N0) parotid cancer. He was evaluated by Guy Harper M.D. for a right parotid mass. A CT of the neck ordered on May 21, 2022 described a 3.1 cm x 2.1 cm x 3.2 cm enhancing mass M.D. in the right superficial parotid gland. He was referred to [facility] in [place], [place]. A fine-needle aspiration obtained on July 22, 2022 reported rare atypical cells. A repeat FNA completed on August 26, 2022 diagnosed a salivary gland carcinoma favoring mucoepidermoid carcinoma. A PET scan obtained on September 26, 2022 identified an infiltrative mass within the right parotid gland (SUV 20.3). There was no evidence for local or distant metastatic disease. A right total parotidectomy with facial nerve preservation and selective neck dissection with a right sternocleidomastoid rotational flap was performed by Celestino Bajwa M.D. on October 01, 2022. 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 Malignancy was present within 1 mm of the inked margin. A total of 7 benign lymph nodes were harvested from cervical lymph node levels I, II A, and III. The patient has received 22 Gy of a prescribed 60 Shaw with an intensity modulated radiotherapy plan utilizing a step and shoot treatment technique. Upon review of systems, he did not report any complaints. On physical examination, the patient weighed 149 lbs. His temperature was 96.8 ???F and the blood pressure was 112/62 mmHg. His pulse was 55 bpm and the respiratory rate was 18. There was no erythema within the treatment alcaraz. Continue post-operative head and neck radiotherapy as prescribed. Signed by: Dilip Desouza 12/09/2022 11:07:23 AM
--- NOTE | 2022-12-16 10:11 | ONCRAD TMN_ITS ---
Radiation Oncology Treatment Management Note Patient Name: Saul Willams Date of : 1945 Date of Service: 12/16/2022 Attending Physician: Dilip Desouza M.D. Saul Willams is a 77 year old white male diagnosed with a pathological stage II (T2N0) parotid cancer. He was evaluated by Guy Harper M.D. for a right parotid mass. A CT of the neck ordered on May 21, 2022 described a 3.1 cm x 2.1 cm x 3.2 cm enhancing mass M.D. in the right superficial parotid gland. He was referred to [facility] in [place], [place]. A fine-needle aspiration obtained on July 22, 2022 reported rare atypical cells. A repeat FNA completed on August 26, 2022 diagnosed a salivary gland carcinoma favoring mucoepidermoid carcinoma. A PET scan obtained on September 26, 2022 identified an infiltrative mass within the right parotid gland (SUV 20.3). There was no evidence for local or distant metastatic disease. A right total parotidectomy with facial nerve preservation and selective neck dissection with a right sternocleidomastoid rotational flap was performed by Celestino Bajwa M.D. on October 01, 2022. 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 Malignancy was present within 1 mm of the inked margin. A total of 7 benign lymph nodes were harvested from cervical lymph node levels I, II A, and III. The patient has received 32 Gy of a prescribed 60 Shaw with an intensity modulated radiotherapy plan utilizing a step and shoot treatment technique. Upon review of systems, he described a mild sore throat. On physical examination, the patient weighed 149 lbs. His temperature was 96.7 ???F and the blood pressure was 109/53 mmHg. His pulse was 50 bpm and the respiratory rate was 18. There was a grade I erythema within the treatment alcaraz. Continue post-operative head and neck radiotherapy as planned. Signed by: Dilip Desouza 12/16/2022 10:10:04 AM
== END 2022-12-17 23:59 | disposition home or self-care (01) ==
PROVIDERS: PCP Family Medicine; Visit Provider Radiology Radiation Oncology
DX: C07 Malignant neoplasm of parotid gland (principal)
CPT/HCPCS: 77300; 77301; 77334; 77336; 77338; 77386; 99024; 99214; Q9967

== ENCOUNTER 2023-01-16 09:10 | Oncology outpatient (recurring) (ONCR) | payer MEDICARE, OTHER, SELFPAY ==
--- NOTE | 2022-12-23 09:54 | ONCRAD TMN_ITS ---
Radiation Oncology Treatment Management Note Patient Name: Saul Willams Date of : 1945 Date of Service: 12/23/2022 Attending Physician: Dilip Desouza M.D. Saul Willams is a 77 year old white male diagnosed with a pathological stage II (T2N0) parotid cancer. He was evaluated by Guy Harper M.D. for a right parotid mass. A CT of the neck ordered on May 21, 2022 described a 3.1 cm x 2.1 cm x 3.2 cm enhancing mass M.D. in the right superficial parotid gland. He was referred to [facility] in [place], [place]. A fine-needle aspiration obtained on July 22, 2022 reported rare atypical cells. A repeat FNA completed on August 26, 2022 diagnosed a salivary gland carcinoma favoring mucoepidermoid carcinoma. A PET scan obtained on September 26, 2022 identified an infiltrative mass within the right parotid gland (SUV 20.3). There was no evidence for local or distant metastatic disease. A right total parotidectomy with facial nerve preservation and selective neck dissection with a right sternocleidomastoid rotational flap was performed by Celestino Bajwa M.D. on October 01, 2022. 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 Malignancy was present within 1 mm of the inked margin. A total of 7 benign lymph nodes were harvested from cervical lymph node levels I, II A, and III. The patient has received 42 Gy of a prescribed 60 Shaw with an intensity modulated radiotherapy plan utilizing a step and shoot treatment technique. Upon review of systems, he described a worsening skin rash within the right neck. On physical examination, the patient weighed 147 lbs. His temperature was 97.3 ???F and the blood pressure was 136/73 mmHg. His pulse was 73 bpm and the respiratory rate was 18. There was a grade II erythema within the treatment alcaraz. Post-pone head and neck radiotherapy in consideration of dermatitis. Signed by: Dilip Desouza 12/23/2022 9:53:11 AM
--- NOTE | 2023-01-06 10:57 | ONCRAD TMN_ITS ---
Radiation Oncology Treatment Management Note Patient Name: Saul Willams Date of : 1945 Date of Service: 01/06/2023 Attending Physician: Dilip Desouza M.D. Saul Willams is a 77 year old white male diagnosed with a pathological stage II (T2N0) parotid cancer. He was evaluated by Guy Harper M.D. for a right parotid mass. A CT of the neck ordered on May 21, 2022 described a 3.1 cm x 2.1 cm x 3.2 cm enhancing mass M.D. in the right superficial parotid gland. He was referred to [facility] in [place], [place]. A fine-needle aspiration obtained on July 22, 2022 reported rare atypical cells. A repeat FNA completed on August 26, 2022 diagnosed a salivary gland carcinoma favoring mucoepidermoid carcinoma. A PET scan obtained on September 26, 2022 identified an infiltrative mass within the right parotid gland (SUV 20.3). There was no evidence for local or distant metastatic disease. A right total parotidectomy with facial nerve preservation and selective neck dissection with a right sternocleidomastoid rotational flap was performed by Celestino Bajwa M.D. on October 01, 2022. 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 Malignancy was present within 1 mm of the inked margin. A total of 7 benign lymph nodes were harvested from cervical lymph node levels I, II A, and III. The patient has received 44 Gy of a prescribed 60 Shaw with an intensity modulated radiotherapy plan utilizing a step and shoot treatment technique. Upon review of systems, he denied any new complaints. On physical examination, the patient weighed 148 lbs. His temperature was 97.1 ???F and the blood pressure was 139/88 mmHg. His pulse was 73 bpm and the respiratory rate was 16. There was a grade I erythema within the treatment alcaraz. Resume head and neck radiotherapy. Signed by: Dilip Desouza 01/06/2023 10:55:36 AM
--- NOTE | 2023-01-13 09:55 | ONCRAD TMN_ITS ---
Radiation Oncology Treatment Management Note Patient Name: Saul Willams Date of : 1945 Date of Service: 01/13/2023 Attending Physician: Dilip Desouza M.D. Saul Willams is a 77 year old white male diagnosed with a pathological stage II (T2N0) parotid cancer. He was evaluated by Guy Harper M.D. for a right parotid mass. A CT of the neck ordered on May 21, 2022 described a 3.1 cm x 2.1 cm x 3.2 cm enhancing mass M.D. in the right superficial parotid gland. He was referred to [facility] in [place], [place]. A fine-needle aspiration obtained on July 22, 2022 reported rare atypical cells. A repeat FNA completed on August 26, 2022 diagnosed a salivary gland carcinoma favoring mucoepidermoid carcinoma. A PET scan obtained on September 26, 2022 identified an infiltrative mass within the right parotid gland (SUV 20.3). There was no evidence for local or distant metastatic disease. A right total parotidectomy with facial nerve preservation and selective neck dissection with a right sternocleidomastoid rotational flap was performed by Celestino Bajwa M.D. on October 01, 2022. 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 Malignancy was present within 1 mm of the inked margin. A total of 7 benign lymph nodes were harvested from cervical lymph node levels I, II A, and III. The patient has received 54 Gy of a prescribed 60 Shaw with an intensity modulated radiotherapy plan utilizing a step and shoot treatment technique. Upon review of systems, he denied any new complaints. On physical examination, the patient weighed 149 lbs. His temperature was 97.1 ???F and the blood pressure was 128/69 mmHg. His pulse was 49 bpm and the respiratory rate was 16. There was a grade I erythema within the treatment alcaraz. Continue head and neck radiotherapy as prescribed. Signed by: Dilip Desouza 01/13/2023 9:54:16 AM
--- NOTE | 2023-01-16 10:37 | N.ONRD TS_ITS ---
Radiation OncologyTreatment Summary Patient Name: Saul Willams Date of : 1945 Date of Service: 01/16/2023 Attending Physician: Dilip Desouza M.D. Saul Willams has completed postoperative head and neck radiotherapy for the management of a a pathological stage II (T2N0) parotid cancer. He was evaluated by Guy Harper M.D. for a right parotid mass. A CT of the neck ordered on May 21, 2022 described a 3.1 cm x 2.1 cm x 3.2 cm enhancing mass M.D. in the right superficial parotid gland. He was referred to [facility] in [place], [place]. A fine-needle aspiration obtained on July 22, 2022 reported rare atypical cells. A repeat FNA completed on August 26, 2022 diagnosed a salivary gland carcinoma favoring mucoepidermoid carcinoma. A PET scan obtained on September 26, 2022 identified an infiltrative mass within the right parotid gland (SUV 20.3). There was no evidence for local or distant metastatic disease. A right total parotidectomy with facial nerve preservation and selective neck dissection with a right sternocleidomastoid rotational flap was performed by Celestino Bajwa M.D. on October 01, 2022. 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 Malignancy was present within 1 mm of the inked margin. A total of 7 benign lymph nodes were harvested from cervical lymph node levels I, II A, and III. Head and neck radiation therapy was delivered between the dates of November 25, 2022 through January 16, 2023. A prescribed dose of 60 Gy was delivered in 30 fractions encompassing 53 elapsed days. The postoperative bed and right cervical lymph node stations were treated utilizing an intensity modulated radiotherapy plan with a step and shoot treatment technique. The plan required eight gantry angles (0???, 30???, 70???, 175???, 220???, 260???, 300???, and 340???) replicating a partial arc. The collimator was rotated from 0??? to 114??? to minimize multileaf excursion. The field sizes spanned 7.9 cm x 12.8 cm to 15.1 cm x 9.5 cm. The SSDs measured a minimum of 91.6 cm to a maximum of 98.4 cm. The ports delivered 113 MU, 113 MU, 140 MU, 94 MU, 73 MU, 156 MU, 172 MU, and 186 MU corresponding to the gantry angles described. Low energy photons were prescribed. All treatments were performed with the Cokonnect linear accelerator and an isocentric technique. The dose was calculated by Anisotropic Analytic Algorithm with the plan normalized to deliver 100% of the prescription dose to 95% of the planning target volume. Signed by: Dilip Desouza 01/16/2023 10:34:57 AM
== END 2023-01-17 23:59 | disposition home or self-care (01) ==
PROVIDERS: PCP Family Medicine; Visit Provider Radiology Radiation Oncology
DX: Z51.0 Encounter for antineoplastic radiation therapy (principal); C07 Malignant neoplasm of parotid gland; C77.0 Secondary and unspecified malignant neoplasm of lymph nodes of head, face and neck; Z90.09 Acquired absence of other part of head and neck; L59.8 Other specified disorders of the skin and subcutaneous tissue related to radiation; Z79.899 Other long term (current) drug therapy; Z87.891 Personal history of nicotine dependence
CPT/HCPCS: 77014; 77336; 77386; 99024; 99213

== ENCOUNTER → 2023-03-11 16:10 | Outpatient (BNVA) | payer MEDICARE, OTHER, SELFPAY | PROVIDERS: PCP Family Medicine; Visit Provider Internal Medicine | DX: Z45.010 Encounter for checking and testing of cardiac pacemaker pulse generator [battery] (principal) | CPT/HCPCS: 93296 ==

== ENCOUNTER → 2023-03-20 14:33 | Outpatient (BNVA) | payer MEDICARE, OTHER, SELFPAY | PROVIDERS: PCP Family Medicine; Visit Provider Internal Medicine | DX: I10 Essential (primary) hypertension (principal); I34.0 Nonrheumatic mitral (valve) insufficiency; E78.5 Hyperlipidemia, unspecified; I48.91 Unspecified atrial fibrillation; I25.10 Atherosclerotic heart disease of native coronary artery without angina pectoris; Z95.0 Presence of cardiac pacemaker; Z87.891 Personal history of nicotine dependence; Z79.01 Long term (current) use of anticoagulants | CPT/HCPCS: 99214 ==

== ENCOUNTER 2023-04-11 07:53 | Outpatient (CLI) | payer MEDICARE, OTHER, SELFPAY ==
--- NOTE | 2023-04-11 08:30 | USCV_ITS ---
Saul Willams Age: 78 Gender: M : 1945 Exam Date: 04/11/2023 08:33 Ordering Phys: Jaya Santizo M.D ([email or web address]) Technologist: Exam Location: [facility] [place] Indication: murmur BP: 132 / 74 HR: 59 Rhythm: Sinus Technical Quality: Adequate MEASUREMENTS (Male / Female) Normal Values 2D ECHO LV Diastolic Diameter PLAX 3.3 cm 4.2 - 5.9 / 3.9 - 5.3 cm LV Systolic Diameter PLAX 2.4 cm IVS Diastolic Thickness 1.1 cm 0.6 - 1.0 / 0.6 - 0.9 cm IVS Systolic Thickness 1.4 cm LVPW Diastolic Thickness 1.3 cm 0.6 - 1.0 / 0.6 - 0.9 cm LVPW Systolic Thickness 1.6 cm LVOT Diameter 2.0 cm LV Ejection Fraction 2D Teich 55.1 % LV Ejection Fraction MOD 2C 79.5 % LV Ejection Fraction 2C AL 79.9 % LA Diameter 5.0 cm Aorta at Sinotubular Diameter 2.6 cm IVC Diameter 2.5 cm M-MODE Aortic Annulus Diameter 4.1 cm LA Ao Ratio MM 1.1 MV E Point Septal Separation 0.6 cm DOPPLER AV Peak Velocity 98.0 cm/s LVOT Peak Velocity 60.0 cm/s AV Area Cont Eq vti 1.5 cm squared AV Area Cont Eq pk 1.9 cm squared MV Area PHT 2.9 cm squared Mitral E to A Ratio 5.1 MV E' Velocity 173.0 cm/s TR Peak Velocity 273.7 cm/s TR Peak Gradient 30.0 mmHg TV Peak E Velocity 167.0 cm/s Right Atrial Pressure 3.0 mmHg Pulmonary Artery Systolic Pressu 33.0 mmHg PV Peak Velocity 70.0 cm/s RV Acceleration Time 0.1 s FINDINGS Left Ventricle Left ventricle is normal in size. LV systolic function is normal with EF of 50-55%. No regional wall motion abnormalities. Right Ventricle Normal in size and function. Pacemaker wire is noted Right Atrium Normal in size. Pacemaker wire is noted Left Atrium Dilated Mitral Valve Mitral valve is thickened. Moderate to severe mitral regurgitation. Aortic Valve Aortic valve is thickened. No significant stenosis or regurgitation. Tricuspid Valve Trace pulmonic regurgitation. Insufficient TR jet to calculate RVSP Pulmonic Valve Moderate tricuspid regurgitation. RVSP is 40 to 45 mmHg. Mild pulmonic regurgitation. Pericardium Not well-visualized Aorta Normal in size IVC Dilated CONCLUSIONS LV systolic function is normal with EF of 50 to 55%. Left atrial dilation Moderate to severe mitral regurgitation Modreate tricuspid regurgitation. Trace pulmonic regurgitation. Compared to prior echocardiogram from 2017, no significant changes are seen Jaya Santizo MD (Electronically Signed) Final Date: 20 April 2023 10:33 S
== END 2023-04-11 07:54 | disposition home or self-care (01) ==
LOC: RAD 07:53
PROVIDERS: PCP Family Medicine; Visit Provider Internal Medicine
DX: I34.0 Nonrheumatic mitral (valve) insufficiency (principal); I07.1 Rheumatic tricuspid insufficiency
CPT/HCPCS: 93306

== ENCOUNTER 2023-07-15 15:08 | Oncology outpatient (recurring) (ONCR) | payer MEDICARE, OTHER, SELFPAY ==
--- OUTSIDE RECORDS SUMMARY | 2023-07-03 10:56 | XMS_ITS | Patient Health Record ---
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 US Doppler Aorta, IVC, Iliac -42992 Reviewed date:02/14/2023 02:37:59 PM Interpretation: Performing Lab: Notes/Report: [id number] REASON FOR REFERRAL No Information MEDICATIONS Medication SIG (Take, Route, Frequency, Duration) Notes Start Date End Date Status Lipitor 20 MG 1 tablet Orally Once a day Active Flomax 0.4 MG 1 capsule Orally Onc e a day Active Baclofen 10 MG 1 tablet Orally Twic e a day Active Multivitamin Adult - 1 tablet Orally Once a day Active Finasteride 5 MG 1 tablet Orally Once a day Active Metoprolol Tartrate 50 MG 1 tablet with food Orally Twice a day Active Gabapentin 300 MG 1 capsule Orally Onc e a day for 30 day(s) Active Warfarin Sodium 5 MG 1 tablet Orally patricio ry night except Friday for 30 day(s) Active traZODone HCl 50 MG 1 tablet at bedtime Orally Once a day for 30 day(s) Active Digoxin 125 MCG 1 tablet Orally Once a day Active Singulair 10 MG 1 tablet Orally Once a day Active SOCIAL HISTORY Tobacco Use: Social History Observation Description Date Details (start date - stop date) Former Smoker NA - NA Sex Assigned At : Social History Observation Description Sex Assigned At Unknown Tobacco Use/Smoking Question Answer Notes Are you a former smoker How long has it been since you last smoked? > 10 years Alcohol Screen (Audit-C) Question Answer Notes Did you have a drink containing alcohol in the p ast year? No Points 0 Interpretation Negative PROBLEMS Problem Type ICD Code Onset Dates Problem Status W/U Status Risk SNOMED Code Notes Problem Shortness of breath (786.05) 2012 Active confirmed Shortness of breath (233508934) [facility] [id number] Atherosclerotic heart disease of [place] coronary artery without angina pectoris (I25.10) Active confirmed Atherosclerotic heart disease of [place] coronary artery without angina pectoris (897556410372749 ) [id number] ed Description:Magaly nary arteriosclerosis Problem Shortness of breath (R06.02) Active confirmed Shortness of breath (325482811) [facility] [id number] Problem AAA (abdominal aortic aneurysm) without rupture (I71.4) Active confirmed Abdominal aorti c aneurysm without rupture (77262716) Problem halfway current use of anticoagulant (Z79.01) Active confirmed Long-term current use of anticoagulant (528361170) Problem History of endovascular stent graft for abdominal aortic aneurysm (Z95.828) Active confirmed History of endovascular stent graft for repair of abdominal aortic aneurysm (081489315493921 ) Problem History of endovascular stent graft for abdominal aortic aneurysm (AAA) (Z95.828) Active confirmed VITAL SIGNS Heart Rate 63 /min 01/29/2023 Temperature 97.6 degrees Fahrenheit 01/29/2023 Oximetry 95 % 01/29/2023 Blood pressure diastolic 56 mm Hg 01/29/2023 Weight-kg 65.9 kg 01/29/2023 Height 69 in 01/29/2023 Blood pressure systolic 104 mm Hg 01/29/2023 Weight 145.28 lbs 01/29/2023 BMI 21.45 kg/m2 01/29/2023 Encounters Encounter Location Date Provider Diagnosis [address] [place] [address] 12/20/2022 Radhika Crawley Abdominal aortic aneurysm, without rupture, unspecified I71.40 [facility] [address] [place] [address] 01/29/2023 Radhika Crawley Abdominal aortic aneurysm, without rupture, unspecified I71.40 ASSESSMENTS Encounter Date Diagnosis Assessment Notes Treatment Notes Treatment Clinical Notes 12/20/2022 Abdominal aortic aneurysm, without rupture, unspecified (ICD-10 - I71.40) 01/29/2023 Abdominal aortic aneurysm, without rupture, unspecified (ICD-10 - I71.40) Repeat US in 1 year PLAN OF TREATMENT Pending Test Test Name Order Date Blood Urea Nitrogen (BUN) 51908 09/28/20 20 Creatinine (B) 46742 09/28/2020 Future Test Test Name Order Date CTA Abd w/ + w/o Contrast-61514 09/27/20 Blood Urea Nitrogen (BUN) 54904 12/17/19 22 Creatinine (B) 18376 12/17/2021 US Doppler Aorta, IVC, Iliac-52795 01/29 Next Appt Details Provider Name:Radhika Crawley, 01/19/2024 10:00:00 AM, [address] [place] [address] [place], [address], Provider Name:Tariq coker, 01/19/2024 10:00:00 AM, [address] [place] [address] [place] [facility] [place] [address], Provider Name:Tariq coker, 01/19/2024 10:00:00 AM, [address] [place] [address] [place], [address], Provider Name:Tariq coker, 01/20/2024 04:30:00 PM, [address] [place] [address] [place], [address], Insurance Providers Payer Name Payer Address Payer Phone Subscriber Number Group Number Insured Name Patient Relationship to Insured Coverage Start Date Coverage End Date [place] Medicare [address] [place] [phone] [id number] Saul Willams Self - patient is the insured [place] [employer] [address] [address] [place] [phone] [id number] Saul Willams Self - patient is the insured MEDICAL (GENERAL) HISTORY Medical History History ICD Code Problem:Abdominal aortic aneurysm (disor [place]) , Status :: Active Problem:Abdominal aortic ane urysm without rupture (disorder) , Status :: Active Problem:History of endovascu lar stent graft for repair of abdominal aortic aneurysm (situation) , Status :: Active Problem:History of tobacco use (situatio n) , Status :: Active Problem:Hypercholesterolemia (disorder) , Status :: Active cerebrovascular accident Surgical History Surgery Date(Month/Year) cardiac pacemeker inguinal hernia repair 11/23/20 Hospitalization History Reason Date(Month/Year) CVA see surgeries
[2023-07-03 11:15] VITALS: BP 133/74; PULSE 91; RESP 16; TEMP 36.8; O2SAT 97
[2023-07-03 11:27] LABS: Basophils % 0.4 %; Eosinophils # 0.1 10^3/uL (0.0-0.8); Eosinophils % 1.5 %; Hematocrit 43.8 % (37-53); Lymphocytes # 0.6 10^3/uL (0.8-4.8); Lymphocytes % 11.3 %; Mean Corpuscular HGB Conc 33.6 g/dL (30-55); Mean Corpuscular Hemoglobin 33.1 pg (27-33); Mean Corpuscular Volume 98.6 fl (82-101); Mean Platelet Volume 11.2 fL (7.4-10.4); Monocytes # 0.6 10^3/uL (0.2-0.9); Monocytes % 10.6 %; Neutrophils # 4.17 10^3/uL (1.8-7.7); Neutrophils % 75.8 %; Nucleated Red Blood Cells % 0 %; Platelet Count 118 10^3/cmm (157-399); Red Blood Count 4.44 10^6/uL (3.85-5.65); Red Cell Distribution Width 12.5 % (12.1-15.1); White Blood Count 5.49 10^3/uL (3.29-11.43)
[2023-07-03 12:42] LABS: Hematocrit 44.2 % (37-53); Mean Corpuscular HGB Conc 33.5 g/dL (30-55); Mean Corpuscular Hemoglobin 33.2 pg (27-33); Mean Corpuscular Volume 99.1 fl (82-101); Mean Platelet Volume 11.2 fL (7.4-10.4); Platelet Count 120 10^3/cmm (157-399); Red Blood Count 4.46 10^6/uL (3.85-5.65); Red Cell Distribution Width 12.6 % (12.1-15.1); White Blood Count 5.74 10^3/uL (3.29-11.43)
[2023-07-03 13:09] LABS: Alanine Aminotransferase 22 U/L (0-41); Albumin Level 3.9 g/dL (3.5-5.2); Alkaline Phosphatase 75 U/L (40-130); Aspartate Amino Transferase 33 U/L (0-40); Chloride 103 mmol/L (98-107); Potassium 3.6 mmol/L (3.5-5.1); Sodium 141 mmol/L (136-145)
[2023-07-03 13:13] LABS: Absolute Eosinophils 0.1 10^3/cmm (0.0-0.7); Absolute Neutrophil 4.4 10^3/cmm (1.4-6.5); Absolute Segmented Neutrophil 4.4 10/cmm (1.6-7.1); Band Neutrophils Absolute 0.1 10^3/cmm (0.0-1.2); Basophils Absolute 0.1 10^3/cmm (0.0-0.2); Eosinophils 1 %; Lymphocytes 5 %; Lymphocytes Absolute 0.9 10^3/cmm (1.2-3.4); Monocytes Absolute 0.3 10^3/cmm (0.1-0.6); Platelet Estimate Normal (Normal); Segmented Neutrophils 76 %; Total Cells Counted 100 (0-100)
[2023-07-03 13:23] LABS: HIV 1 & 2 Antibody Non-Reactive (Non-Reactiv); HIV 1 & 2 Antigen Non-Reactive (Non-Reactiv)
[2023-07-03 13:26] LABS: Hepatitis A Antibody IgM Non-Reactive (Nonreactive); Hepatitis B Core AB, Total Non-Reactive (Nonreactive); Hepatitis B Surface AB 3.5 (11.5-1000); Hepatitis B Surface Antigen Non-Reactive (Nonreactive); Hepatitis C Virus Antibody Non-Reactive (Nonreactive)
[2023-07-03 14:23] LABS: Anion Gap 11.6 (5-19); Blood Urea Nitrogen 14 mg/dL (8-23); Carbon Dioxide 30 mmol/L (22-29); Globulin 2.9 g/dL (1.3-4.6); Glucose 110 mg/dL (65-115); Osmolality Calculated 293 mOsm/kg (285-295); Thyroid Stimulating Hormone 2.57 uIU/mL (0.27-4.20); Total Bilirubin 1.5 mg/dL (0.15-1.2); Total Protein 6.8 g/dL (6.6-8.7); Vitamin B12 644 pg/mL (232-1245)
[2023-07-03 14:27] LABS: Folate Level > 20.0 ng/mL (4.5-32.2)
[2023-07-03 14:46] LABS: Free T4 Free Thyroxine 0.97 ng/dL (0.82-1.77)
[2023-07-04 15:09] LABS: Anti-Nuclear Antibody Screen NEGATIVE (NEGATIVE)
== END 2023-07-19 23:59 | disposition home or self-care (01) ==
PROVIDERS: Internal Medicine Medical Oncology; PCP Family Medicine; Visit Provider Radiology Radiation Oncology
DX: C07 Malignant neoplasm of parotid gland (principal)
CPT/HCPCS: 36415; 80053; 82247; 82248; 82607; 82746; 84439; 84443; 85007; 85025; 85027; 85613; 85730; 86038; 86705; 86706; 86709; 86803; 87340; 87806; 99205; 99214

== ENCOUNTER 2023-07-17 06:32 | Outpatient (CLI) | payer MEDICARE, OTHER, SELFPAY ==
--- NOTE | 2023-07-17 07:15 | US_ITS ---
WS: [id number] Complete ABDOMINAL ULTRASOUND HISTORY: Liver and speen size, increased liver enzymes COMPARISON: None available. Liver: 13.6 cm in length. Normal size liver and echogenicity. No bile duct dilatation or mass. Portal Vein: Normal hepatopetal flow with monophasic waveform. Gallbladder: Normally distended with cholelithiasis. No evidence for acute cholecystitis. CBD: 0.4 cm Pancreas: Partially obscured by bowel gas. Right kidney: 9.3 cm x 5.0 x 5.1 cm. Cortex:1.0 cm. Normal size with no obstruction. Cortical cyst lower pole with a maximum diameter 1.0 cm. Left kidney: 9.1 cm x 3.6 cm x 4.5 cm. Cortex: 1.1 cm. Normal size and echogenicity. No hydronephrosis or mass. Cortical cyst lower pole with a maximum diam eter of 1.2 cm. Spleen: 9.2 cm in length. Normal size. Aorta and IVC: Patient is status post aortobiiliac stent graft. The entire graft measures at least 4. 4 x 5.1 cm and extends over a length of 7 cm. For more detailed evaluation of the graft CT angiogram should be obtained. Impression: 1. Cholelithiasis without acute cholecystitis. 2. Bilateral cortical renal cysts. 3. Patient is status post aortobiiliac stent graft. Ultrasound evaluation is limited. For better eval uation of the stent graft CT angiogram can be obtained. No abnormality is detected but this is a very insensitive examination of the stent graft. 4. Normal size liver and spleen.
[2023-07-17] MEDS: iohexol 350 mg/mL 500 mL Btl (per mL) IV (07:50)
--- NOTE | 2023-07-17 08:00 | CT_ITS ---
WS: [id number] CT NECK WITH CONTRAST HISTORY: lower salivatory gland tumor, s/p surgery XRG TECHNIQUE: Contiguous 2 mm axial images are performed through the neck with intravenous contrast. Sag ittal and coronal reformats are also submitted. All CT scans at [facility] use at least one o f these dose optimization techniques: automated exposure control; mA and/or kV adjustment per patient size (includes targeted exams where dose is matched to clinical indication); or iterative reconstruc tion. CONTRAST: CONTRAST: Omnipaque 350; 100 mL IV. DLP: 201.46 mGy.cm COMPARISON: 05/21/2022, PET/CT 09/26/2022 Status post RIGHT parotidectomy since the prior CT of 05/21/2022. There is loss of volume and soft tiss ue along the RIGHT neck and surgical clips are noted in the parotid bed. Normal appearance of the adrien rnocleidomastoid muscle and the adjacent soft tissues. Submandibular glands are normal. There is no r esidual parotid tumor. No adenopathy along the cervical chains are at the parotid bed. Nasopharynx, oropharynx and hypopharynx are normal. No laryngeal abnormality. No airway obstruction. No osteoblastic or osteolytic bone lesions. Incidental note is made of a small caliber LEFT vertebral artery but it is patent. Also noted is a re mote LEFT cerebellar and LEFT cerebral infarcts. These have been previously described on a prior head CT of 04/02/2022. Visualized paranasal sinuses and mastoid air cells are normal. Severe centrilobular emphysematous changes in the lung apices. IMPRESSION: 1. Status post RIGHT parotidectomy since 05/21/2022. No recurrent mass or adenopathy along the cervical chains. 2. Remote LEFT cerebellar and cerebral infarcts which have been previously described. 3. Severe centrilobular emphysema at the lung apices. No pulmonary nodules.
== END 2023-07-17 06:33 | disposition home or self-care (01) ==
LOC: RAD 06:33
PROVIDERS: PCP Family Medicine; Visit Provider Internal Medicine Medical Oncology
DX: C07 Malignant neoplasm of parotid gland (principal); R74.8 Abnormal levels of other serum enzymes
CPT/HCPCS: 70491; 76700; Q9967

== ENCOUNTER 2023-07-22 08:37 | Oncology outpatient (recurring) (ONCR) | payer MEDICARE, OTHER, SELFPAY ==
[2023-07-22 08:48] VITALS: BP 132/83; PULSE 86; RESP 16; TEMP 36.8; O2SAT 93
[2023-07-22 09:02] LABS: Basophils % 0.3 %; Eosinophils # 0.3 10^3/uL (0.0-0.8); Eosinophils % 4.9 %; Lymphocytes # 0.9 10^3/uL (0.8-4.8); Lymphocytes % 15.2 %; Mean Corpuscular HGB Conc 34.3 g/dL (30-55); Mean Corpuscular Hemoglobin 33.3 pg (27-33); Mean Corpuscular Volume 96.9 fl (82-101); Monocytes # 0.7 10^3/uL (0.2-0.9); Monocytes % 11.2 %; Neutrophils # 4.07 10^3/uL (1.8-7.7); Neutrophils % 68.2 %; Nucleated Red Blood Cells % 0 %; Platelet Count 139 10^3/cmm (157-399); Red Blood Count 4.54 10^6/uL (3.85-5.65); Red Cell Distribution Width 12.3 % (12.1-15.1); White Blood Count 5.97 10^3/uL (3.29-11.43)
[2023-07-22 09:19] LABS: Alanine Aminotransferase 16 U/L (0-41); Albumin Level 3.9 g/dL (3.5-5.2); Alkaline Phosphatase 87 U/L (40-130); Aspartate Amino Transferase 20 U/L (0-40); Blood Urea Nitrogen 12 mg/dL (8-23); Calcium 9.4 mg/dL (8.5-10.5); Carbon Dioxide 27 mmol/L (22-29); Chloride 103 mmol/L (98-107); Globulin 3.2 g/dL (1.3-4.6); Glucose 97 mg/dL (65-115); Osmolality Calculated 288 mOsm/kg (285-295); Sodium 139 mmol/L (136-145); Total Bilirubin 1.5 mg/dL (0.15-1.2); Total Protein 7.1 g/dL (6.6-8.7)
== END 2023-08-19 23:59 | disposition home or self-care (01) ==
PROVIDERS: Nurse Practitioner Family; PCP Family Medicine; Visit Provider Radiology Radiation Oncology
DX: C07 Malignant neoplasm of parotid gland; C77.0 Secondary and unspecified malignant neoplasm of lymph nodes of head, face and neck; Z90.09 Acquired absence of other part of head and neck; L59.8 Other specified disorders of the skin and subcutaneous tissue related to radiation; Z79.899 Other long term (current) drug therapy; Z87.891 Personal history of nicotine dependence
CPT/HCPCS: 36415; 80053; 85025; 99215

== ENCOUNTER → 2023-09-23 12:33 | Outpatient (BNVA) | payer MEDICARE, OTHER, SELFPAY | PROVIDERS: PCP Family Medicine; Visit Provider Internal Medicine | DX: I10 Essential (primary) hypertension (principal); E78.5 Hyperlipidemia, unspecified; I34.0 Nonrheumatic mitral (valve) insufficiency; I48.91 Unspecified atrial fibrillation; I25.10 Atherosclerotic heart disease of native coronary artery without angina pectoris; Z95.0 Presence of cardiac pacemaker; Z87.891 Personal history of nicotine dependence; Z79.01 Long term (current) use of anticoagulants | CPT/HCPCS: 99214 ==

== ENCOUNTER 2023-10-27 11:34 | Oncology outpatient (recurring) (ONCR) | payer MEDICARE, OTHER, SELFPAY ==
[2023-10-27 11:44] VITALS: BP 133/71; PULSE 52; RESP 16; TEMP 36.5; O2SAT 98
[2023-10-27 12:00] LABS: Basophils % 0.6 %; Eosinophils # 0.1 10^3/uL (0.0-0.8); Eosinophils % 2.1 %; Hematocrit 45.2 % (37-53); Lymphocytes # 0.9 10^3/uL (0.8-4.8); Lymphocytes % 17.5 %; Mean Corpuscular HGB Conc 33.2 g/dL (30-55); Mean Corpuscular Hemoglobin 32.6 pg (27-33); Mean Corpuscular Volume 98.3 fl (82-101); Mean Platelet Volume 10.8 fL (7.4-10.4); Monocytes # 0.5 10^3/uL (0.2-0.9); Monocytes % 9.5 %; Neutrophils # 3.69 10^3/uL (1.8-7.7); Neutrophils % 69.9 %; Nucleated Red Blood Cells % 0 %; Platelet Count 127 10^3/cmm (157-399); Red Cell Distribution Width 12.6 % (12.1-15.1); White Blood Count 5.27 10^3/uL (3.29-11.43)
[2023-10-27 12:16] LABS: Alanine Aminotransferase 20 U/L (0-41); Albumin Level 3.9 g/dL (3.5-5.2); Alkaline Phosphatase 86 U/L (40-130); Anion Gap 11.9 (5-19); Aspartate Amino Transferase 25 U/L (0-40); Blood Urea Nitrogen 15 mg/dL (8-23); Calcium 9.3 mg/dL (8.5-10.5); Carbon Dioxide 28 mmol/L (22-29); Chloride 102 mmol/L (98-107); Globulin 3.2 g/dL (1.3-4.6); Glucose 93 mg/dL (65-115); Osmolality Calculated 287 mOsm/kg (285-295); Potassium 3.9 mmol/L (3.5-5.1); Sodium 138 mmol/L (136-145); Total Bilirubin 1.3 mg/dL (0.15-1.2); Total Protein 7.1 g/dL (6.6-8.7)
[2023-10-27 14:06] LABS: Free T4 Free Thyroxine 0.94 ng/dL (0.82-1.77)
== END 2023-11-19 23:59 | disposition home or self-care (01) ==
PROVIDERS: Internal Medicine Medical Oncology; PCP Family Medicine; Visit Provider Radiology Radiation Oncology
DX: C07 Malignant neoplasm of parotid gland (principal); C77.0 Secondary and unspecified malignant neoplasm of lymph nodes of head, face and neck; Z90.09 Acquired absence of other part of head and neck; L59.8 Other specified disorders of the skin and subcutaneous tissue related to radiation; Z79.899 Other long term (current) drug therapy; Z87.891 Personal history of nicotine dependence; Z51.0 Encounter for antineoplastic radiation therapy
CPT/HCPCS: 36415; 80053; 84439; 84443; 85025; 99214

== ENCOUNTER → 2023-12-12 14:59 | Outpatient (BNVA) | payer MEDICARE, OTHER, SELFPAY | PROVIDERS: PCP Family Medicine | DX: Z45.010 Encounter for checking and testing of cardiac pacemaker pulse generator [battery] (principal) | CPT/HCPCS: 93296 ==

== ENCOUNTER → 2024-04-05 12:47 | Outpatient (BNVA) | payer MEDICARE, OTHER, SELFPAY | PROVIDERS: PCP Family Medicine; Visit Provider Internal Medicine Cardiovascular Disease | DX: I25.10 Atherosclerotic heart disease of native coronary artery without angina pectoris (principal); I34.0 Nonrheumatic mitral (valve) insufficiency; I48.91 Unspecified atrial fibrillation; I95.9 Hypotension, unspecified; Z87.891 Personal history of nicotine dependence; Z95.0 Presence of cardiac pacemaker; Z79.01 Long term (current) use of anticoagulants | CPT/HCPCS: 99214 ==

== ENCOUNTER → 2024-04-06 13:15 | Outpatient (BNVA) | payer MEDICARE, OTHER, SELFPAY | PROVIDERS: PCP Family Medicine | DX: Z45.010 Encounter for checking and testing of cardiac pacemaker pulse generator [battery] (principal) | CPT/HCPCS: 93296 ==

== ENCOUNTER → 2024-07-22 08:55 | Outpatient (BNVA) | payer MEDICARE, OTHER, SELFPAY | PROVIDERS: PCP Family Medicine; Visit Provider Internal Medicine | DX: Z45.010 Encounter for checking and testing of cardiac pacemaker pulse generator [battery] (principal) | CPT/HCPCS: 93296 ==

== ENCOUNTER → 2024-10-07 15:15 | Outpatient (BNVA) | payer MEDICARE, OTHER, SELFPAY | PROVIDERS: PCP Family Medicine; Visit Provider Internal Medicine | DX: I10 Essential (primary) hypertension (principal); E78.5 Hyperlipidemia, unspecified; I34.0 Nonrheumatic mitral (valve) insufficiency; I48.91 Unspecified atrial fibrillation; I49.5 Sick sinus syndrome; I25.10 Atherosclerotic heart disease of native coronary artery without angina pectoris; Z87.891 Personal history of nicotine dependence; Z95.0 Presence of cardiac pacemaker; Z79.01 Long term (current) use of anticoagulants | CPT/HCPCS: 99214 ==

== ENCOUNTER → 2024-11-03 09:38 | Outpatient (BNVA) | payer MEDICARE, OTHER, SELFPAY | PROVIDERS: PCP Family Medicine; Visit Provider Internal Medicine Cardiovascular Disease | DX: Z45.018 Encounter for adjustment and management of other part of cardiac pacemaker (principal) | CPT/HCPCS: 93296 ==

== ENCOUNTER 2024-11-11 10:37 | Outpatient (CLI) | payer OTHER, SELFPAY ==
--- NOTE | 2024-11-11 10:43 | CT_ITS ---
WS: [id number] CT HEAD WITH AND WITHOUT CONTRAST HISTORY: PROGRESSIVELY WORSENING VERTIGO TECHNIQUE: Noncontrast 2.5 mm axial images obtained from the vertex to the skull base. Additional marj ging performed at 2.5 mm axial images status post IV contrast. Bone and soft tissue windows are revie wed. All CT scans at [facility] use at least one of these dose optimization techniques: autom ated exposure control; mA and/or kV adjustment per patient size (includes targeted exams where dose i s matched to clinical indication); or iterative reconstruction. CONTRAST: Omnipaque 350; 100 mL IV. DLP: 2191.60 mGy.cm COMPARISON: 04/02/2022 No acute intracranial hemorrhage, edema or midline shift. Mild atrophy. More focal encephalomalacia involving the LEFT occipital and medial temporal lobe from a prior infarct. Prior lacunar infarct in the LEFT thalamus. Moderate cerebellar atrophy. Additional focal infarct with volume loss in the superior LEFT cerebellum. Mild dilatation of the ventricles and extra-axial spaces. Ex vacuo dilatation LEFT lateral ventricle occipital horn. No enhancing mass or vascular malformation. Dural venous sinuses are normally enhancing. Visualized [place] is unremarkable. Paranasal sinuses as visualized: Clear. Mastoid air cells: Clear. Calvarium and scalp: Intact. 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 CT/CT head wo/w con [id number] IMPRESSION: 1. No acute intracranial hemorrhage or edema. 2. Large remote LEFT posterior cerebral artery territory infarct with encephal omalacia. 3. Prior infarct superior LEFT cerebellum. 4. No enhancing masses. 5. 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
--- NOTE | 2024-11-11 10:43 | USCV_ITS ---
ImerSaul jesus Age: 79 Gender: M : 1945 Exam Date: 11/11/2024 11:35 Ordering Phys: Christina Nagel MD Technologist: [place] [facility] [place]: cca disease Risk Factors: Previous Vascular Surgery: Right Brachial BP: / Left Brachial BP: / Right Left Velocity (cm/s) Spectral Plaque Velocity (cm/s) Spectral Plaque Syst/Diast Broadening Syst/Diast Broadening 82.80/ 21.90 Prox CCA 91.30 / 23.70 72.40/ 23.20 Hetro Mid CCA 104.30/ 25.90 Hetro 60.80/ 14.10 Hetro Distal CCA 110.60/ 25.90 Hetro 46.50/ 10.20 Hetro Prox ICA 101.20/ 20.90 Hetro 73.70/ 23.20 Mid ICA 100.00/ 24.80 84.10/ 27.10 Distal ICA 77.00 / 18.60 115.20 ECA 88.60 1.40 ICA/CCA 0.90 Antegrade Vertebral Antegrade 40.00/ 11.50 cm/s 24.30/ 1.80 cm/s Bi Subclavian Bi 165.3 100.2 0 0 FINDINGS Comparison:. 05/01/20 No significant elevation of systolic or diastolic velocities. Waveforms are normal. Diffuse bilateral scattered calcified plaque and intimal thickening throughout the common carotid arteries and extending through the bifurcation. Antegrade vertebral arteries. CONCLUSIONS Bilateral ICA stenosis less than 50%. Mild progression of carotid atherosclerosis. Dr. Michell Begum DO (Electronically Signed) Final Date: 11 November 2024 13:50 S
[2024-11-11 11:17] LABS: Blood Urea Nitrogen 14 mg/dL (8-23)
[2024-11-11] MEDS: iohexol 350 mg/mL 500 mL Btl (per mL) IV (11:36)
== END 2024-11-11 10:38 | disposition home or self-care (01) ==
LOC: RAD 10:38
PROVIDERS: PCP Family Medicine; Visit Provider Family Medicine
DX: I65.8 Occlusion and stenosis of other precerebral arteries (principal); I65.23 Occlusion and stenosis of bilateral carotid arteries; G93.89 Other specified disorders of brain; Z98.890 Other specified postprocedural states; G31.9 Degenerative disease of nervous system, unspecified; R93.89 Abnormal findings on diagnostic imaging of other specified body structures
CPT/HCPCS: 70470; 82565; 84520; 93880

== ENCOUNTER → 2025-04-27 10:37 | Outpatient (BNVA) | payer MEDICARE, OTHER, SELFPAY | PROVIDERS: PCP Family Medicine; Visit Provider Nurse Practitioner Family | DX: I25.10 Atherosclerotic heart disease of native coronary artery without angina pectoris (principal); I48.0 Paroxysmal atrial fibrillation; Z79.01 Long term (current) use of anticoagulants; I49.5 Sick sinus syndrome; I34.0 Nonrheumatic mitral (valve) insufficiency; I10 Essential (primary) hypertension; E78.5 Hyperlipidemia, unspecified; Z95.0 Presence of cardiac pacemaker; Z87.891 Personal history of nicotine dependence | CPT/HCPCS: 99213 ==

== ENCOUNTER → 2025-05-11 12:51 | Outpatient (BNVA) | payer MEDICARE, OTHER, SELFPAY | PROVIDERS: PCP Family Medicine; Visit Provider Internal Medicine Cardiovascular Disease | DX: Z45.018 Encounter for adjustment and management of other part of cardiac pacemaker (principal) | CPT/HCPCS: 93296 ==